=== PATIENT | male | born 1990 | race Caucasian/White ===

== ENCOUNTER 2021-10-30 11:25 | Emergency (ER) | payer OTHER ==
[~2021-10-30] VITALS: Ht 165.1 cm; Wt 104.3 kg
[~2021-10-30 11:25] MED LIST: Crutch1 EACH MISC; HYDACE5 PO; HYDACE7.5L PO; IBUP600 PO; NYST100TC TOP; Naprosyn500 MG PO; TRAM50 PO; Ultram50 MG PO
== END 2021-10-30 15:23 | disposition home or self-care (01) ==
LOC: ER 11:25
DX: M75.91 Shoulder lesion, unspecified, right shoulder (principal); F17.200 Nicotine dependence, unspecified, uncomplicated; Z91.018 Allergy to other foods
CPT/HCPCS: 73030; A9270